=== PATIENT | male | born 1965 | race African-American/Black ===

== ENCOUNTER → 2023-08-02 | Day surgery (SDC) | payer MEDICARE, MEDICAID ==
[~2023-08-02] MED LIST: LIDOCAINE HCL 1% 10 MG/ML 10ML VIAL ONE
== END | disposition home or self-care (01) ==
LOC: RADANGIO 12:34
PROVIDERS: ATTEND Podiatrist Foot & Ankle Surgery
DX: Z45.2 Encounter for adjustment and management of vascular access device (principal); E11.621 Type 2 diabetes mellitus with foot ulcer; M86.8X7 Other osteomyelitis, ankle and foot
CPT/HCPCS: 36573; J3490; Z7610; C1725; C1751